=== PATIENT | female | born 1985 | race Two or more races ===

== ENCOUNTER 2024-02-23 16:20 | Emergency (ER) | payer MEDICAID ==
[~2024-02-23] VITALS: Ht 170.2 cm; Wt 114.1 kg
[2024-02-23] MEDS ORDERED: ALBUAER3 IN (19:41)
[2024-02-23] MEDS ORDERED: BENZ200C64 PO (19:41)
[2024-02-23] MEDS ORDERED: AZITTAB PO (19:41)
[2024-02-23] MEDS ORDERED: PRED20TA2 PO (19:41)
[2024-02-23] MEDS: DexAMETHasone SOD PHOS 10MG/1ML VIAL INJ IM ONE (19:47)
[2024-02-23] MEDS: cefTRIAXone SOD 1,000 MG VL IM ONE (19:48)
[2024-02-23] MEDS: IPRATROPIUM BROM 0.5 MG/2.5ML INH SOL NEB ONE (20:21)
[2024-02-23] MEDS: ALBUTEROL SULF 2.5 MG/0.5ML(0.5%) NEB SOLN NEB ONE (20:21)
[2024-02-23 20:25] VITALS: BP 129/71; PULSE 79; RESP 18; TEMP 97.8; O2SAT 98
== END 2024-02-23 20:28 | disposition home or self-care (01) ==
LOC: ER 16:20
DX: J03.90 Acute tonsillitis, unspecified (principal); J20.9 Acute bronchitis, unspecified; R06.02 Shortness of breath
CPT/HCPCS: 94640; 96372; 99284; J0696; J1100; J7644